=== PATIENT | female | born 1995 | race Hispanic/Latino ===

== ENCOUNTER 2018-05-15 00:56 | Outpatient (CLI) | payer MEDICAID ==
[2018-05-15 01:20] VITALS: BP 136/68
[2018-05-15] MEDS ORDERED: LACTATED RINGERS 1,000 ML IV ONE (01:49)
[2018-05-15 02:29] LABS: Bilirubin,Urine NEG (Negative); Blood,Urine SM (Negative); Color,Urine Yellow (Yellow); Mucus,Urine FEW /HPF; Protein,Urine <15 mg/dL mg/dL (Negative); Urobilinogen,Urine < 2.0 mg/dL (<2.0)
== END 2018-05-15 03:48 | disposition home or self-care (01) ==
LOC: EDSEX → TRG 00:56
PROVIDERS: ATTEND Obstetrics & Gynecology
DX: O47.03 False labor before 37 completed weeks of gestation, third trimester (principal); Z3A.36 36 weeks gestation of pregnancy; O99.333 Smoking (tobacco) complicating pregnancy, third trimester
CPT/HCPCS: 59025; 81001; 96360; J7120

== ENCOUNTER 2018-05-31 23:40 | Inpatient (IN) | payer MEDICAID ==
[2018-06-01] MEDS ORDERED: MINERAL OIL PO PRN (00:12)
[2018-06-01] MEDS ORDERED: POLYCILLIN/NS 2 GM/100 ML 2 GM/100 ML BAG IV ONE (00:12)
[2018-06-01] MEDS ORDERED: XYLOCAINE 2% INFILTRATI ONE (00:12)
[2018-06-01] MEDS ORDERED: BRETHINE SUB-Q PRN (00:12)
--- NOTE | 2018-06-01 00:27 | History and Physical Report ---
History of Present Illness Date of examination: 06/01/18 Chief complaint: SROM @ 2300 History of present illness: patient is an unassigned patient, arrived to triage with c/o SROM @ approx 2300. Clear fluid noted. She reports care with provider @ [facility] starting @ 6weeks. Pt denies medical or surgical hx. She denies complications with - states GBS neg. 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 denies: abnormal PAP smear, hepatitis B, hepatitis C, HIV, syphilis, trichomonas Social history: lives with family - Obstetrical History Expected Date of Delivery: 06/06/18 Actual Gestation: 39 Week(s) 2 Day(s) : 3 Para: 1 Hx # Term Pregnancies: 1 Number of Pregnancies: 0 Spontaneous Abortions: 1 Induced : 0 Number of Living Children: 1 Medications and Allergies Allergies Allergy/AdvReac Type Severity Reaction Status Date / Time No Known Allergies Allergy Verified 05/15/18 02:00 Home Medications Medication Instructions Recorded Confirmed Last Taken Type Ranitidine HCl [Zantac] 300 mg PO QHS 05/15/18 06/01/18 05/31/18 History Review of Systems All systems: negative - Vital Signs Vital signs: Vital Signs Temp Resp 97.0 F L 20 05/31/18 23:54 05/31/18 23:54 Temp Pulse Resp BP Pulse Ox 97.0 F L 91 H 20 129/71 05/31/18 23:54 06/01/18 00:14 05/31/18 23:54 06/01/18 00:14 - Physical Exam Breasts: Positive: normal Cardiovascular: Regular rate Lungs: Positive: Clear to auscultation, Normal air movement Abdomen: Positive: normal appearance, soft Genitourinary (Female): Positive: normal external genitalia, normal perenium Vagina: Positive: normal moisture (srom clear) Uterus: Positive: normal size, normal contour Anus/Rectum: Positive: normal perianal skin Extremities: Positive: normal - Obstetrical FHR: category 1 Uterine Contraction Monitor Mode: External Cervical Dilatation: 3 Cervical Effacement Percentage: 50 Uterine Contraction Pattern: Regular Uterine Tone Measurement Phase: Contraction Uterine Contraction Intensity: Mild Results All other labs normal. Assessment and Plan 23y/o @ 39+ weeks admitted to labor and delivery; SROM @ approx 2300 with clear fluid. vertex. per patient GBS negative. 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 - Patient Problems (1) 39 weeks gestation of Current Visit: Yes Status: Acute (2) SROM (spontaneous rupture of membranes) Current Visit: Yes Status: Acute
[2018-06-01] MEDS ORDERED: PITOCin/NS 20 UNIT/1000ML DRIP 20 UNITS/1,000 ML BAG IV SCH (01:00)
[2018-06-01 01:02] LABS: Hematocrit 32.8 % (30.3-42.9); Hemoglobin 11.1 gm/dl (10.1-14.3); Mean Corpuscular HGB Conc 34 % (30-34); Mean Corpuscular Hemoglobin 29 pg (28-32); Mean Corpuscular Volume 85 fl (79-97); Platelet Count 240 K/mm3 (140-440); Red Blood Count 3.85 M/mm3 (3.65-5.03); Red Cell Distribution Width 14.9 % (13.2-15.2)
[2018-06-01 01:06] LABS: Amphetamine Screen,Urine PRESUMPTIVE NEGATIVE; Benzodiazepines Screen,Urine PRESUMPTIVE NEGATIVE; Cannabinoid Screen,Urine PRESUMPTIVE NEGATIVE; Cocaine Screen,Urine PRESUMPTIVE NEGATIVE; Methadone Screen,Urine PRESUMPTIVE NEGATIVE; Opiate Screen,Urine PRESUMPTIVE NEGATIVE
[2018-06-01] MEDS ORDERED: ZOFRAN ONE (01:42)
[2018-06-01] MEDS: LACTATED RINGERS 1,000 ML IV SCH ×2 (01:59→02:57)
[2018-06-01] MEDS ORDERED: NARCAN 2 MG/2 ML IV PRN (02:42)
--- NOTE | 2018-06-01 02:51 | Anesthesia Consultation ---
Anesthesia Consult and Med Hx - Airway Anesthetic Teeth Evaluation: Good ROM Head & Neck: Adequate Mental/Hyoid Distance: Adequate Mallampati Class: Class II Intubation Access Assessment: Probably Good - Pre-Operative Health Status ASA Pre-Surgery Classification: ASA3 Proposed Anesthetic Plan: Epidural - Pulmonary Hx Asthma: No COPD: No Hx Pneumonia: No - Cardiovascular System Hx Hypertension: No - Central Nervous System Hx Seizures: No Hx Psychiatric Problems: Yes (anxiety) - Endocrine Hx Renal Disease: No Hx End Stage Renal Disease: No Hx Hypothyroidism: No Hx Hyperthyroidism: No - Hematic Hx Anemia: No Hx Sickle Cell Disease: No - Other Systems Hx Alcohol Use: No Hx Obesity: Yes - Additional Comments Anesthesia Medical History Comments: term IUP
[2018-06-01] MEDS: fentaNYL-BUPIV 2 MCG/ML-0.125% 200 MCG/100 ML BAG EPIDURAL SCH ×2 (03:28→09:26)
[2018-06-01] MEDS ORDERED: AMPICILLIN/NS 1 GM/50 ML 1 GM/50 ML BAG IV SCH (04:13)
[2018-06-01] MEDS ORDERED: PITOCin/NS 30 UNIT/500ML 30 UNITS/500 ML BAG IV SCH (06:00)
[2018-06-01] MEDS ORDERED: PEPCID IV ONE (06:30)
--- NOTE | 2018-06-01 07:48 | Progress Note ---
Assessment and Plan pt resting C/o slight DUCKWORTH @ a 2. VSS FHR Cat 1 Ctx Q 2-4 Pit @ 16 mu SVE 6,80,-1 ISE/IUPC placed. Re-eval as needed Subjective - Subjective Date of service: 06/01/18 (pt comfortable with epidural) Principal diagnosis: IUP @ 39 weeks SROM; Patient reports: movement normal Objective - Vital Signs Vital Signs: Vital Signs - 12hr 05/31/18 06/01/18 06/01/18 23:54 00:05 00:14 Temperature 97.0 F L Pulse Rate 93 H 91 H Respiratory 20 Rate Blood Pressure 144/71 129/71 Blood Pressure [Right] O2 Sat by Pulse Oximetry 06/01/18 06/01/18 06/01/18 01:00 01:19 01:21 Temperature Pulse Rate 89 88 98 H Respiratory 17 Rate Blood Pressure Blood Pressure 119/59 [Right] O2 Sat by Pulse 96 97 92 Oximetry 06/01/18 06/01/18 06/01/18 01:24 01:27 01:29 Temperature Pulse Rate 92 H 90 105 H Respiratory Rate Blood Pressure Blood Pressure [Right] O2 Sat by Pulse 96 94 95 Oximetry 06/01/18 06/01/18 06/01/18 01:37 01:42 01:43 Temperature Pulse Rate 88 97 H 69 Respiratory Rate Blood Pressure Blood Pressure [Right] O2 Sat by Pulse 99 96 94 Oximetry 06/01/18 06/01/18 06/01/18 01:47 01:52 01:56 Temperature Pulse Rate 90 99 H 104 H Respiratory Rate Blood Pressure 116/63 Blood Pressure [Right] O2 Sat by Pulse 97 97 94 Oximetry 06/01/18 06/01/18 06/01/18 01:57 02:02 02:08 Temperature Pulse Rate 100 H 93 H 97 H Respiratory Rate Blood Pressure Blood Pressure [Right] O2 Sat by Pulse 95 95 97 Oximetry 06/01/18 06/01/18 06/01/18 02:13 02:15 02:18 Temperature Pulse Rate 88 87 83 Respiratory Rate Blood Pressure Blood Pressure [Right] O2 Sat by Pulse 98 94 97 Oximetry 06/01/18 06/01/18 06/01/18 02:21 02:23 02:28 Temperature Pulse Rate 86 83 107 H Respiratory Rate Blood Pressure 116/59 Blood Pressure [Right] O2 Sat by Pulse 99 98 Oximetry 06/01/18 06/01/18 06/01/18 02:31 02:33 02:35 Temperature Pulse Rate 103 H 98 H 96 H Respiratory Rate Blood Pressure 105/52 122/71 134/92 Blood Pressure [Right] O2 Sat by Pulse 94 Oximetry 06/01/18 06/01/18 06/01/18 02:37 02:38 02:39 Temperature Pulse Rate 97 H 96 H 100 H Respiratory Rate Blood Pressure 147/83 162/72 Blood Pressure [Right] O2 Sat by Pulse 97 90 Oximetry 06/01/18 06/01/18 06/01/18 02:41 02:43 02:45 Temperature Pulse Rate 95 H 83 76 Respiratory Rate Blood Pressure 142/67 123/55 116/58 Blood Pressure [Right] O2 Sat by Pulse 95 94 Oximetry 06/01/18 06/01/18 06/01/18 02:47 02:49 02:51 Temperature Pulse Rate 90 87 82 Respiratory Rate Blood Pressure 111/55 109/55 104/55 Blood Pressure [Right] O2 Sat by Pulse Oximetry 06/01/18 06/01/18 06/01/18 02:53 02:56 03:01 Temperature Pulse Rate 77 83 84 Respiratory Rate Blood Pressure 103/52 Blood Pressure [Right] O2 Sat by Pulse 97 97 Oximetry 06/01/18 06/01/18 06/01/18 03:06 03:11 03:12 Temperature Pulse Rate 84 78 75 Respiratory Rate Blood Pressure 109/67 Blood Pressure [Right] O2 Sat by Pulse 95 97 Oximetry 06/01/18 06/01/18 06/01/18 03:16 03:21 03:26 Temperature Pulse Rate 71 78 73 Respiratory Rate Blood Pressure 100/52 Blood Pressure [Right] O2 Sat by Pulse 94 98 94 Oximetry 06/01/18 06/01/18 06/01/18 03:31 03:34 03:36 Temperature Pulse Rate 84 74 73 Respiratory Rate Blood Pressure Blood Pressure [Right] O2 Sat by Pulse 99 94 97 Oximetry 06/01/18 06/01/18 06/01/18 03:41 03:44 03:46 Temperature Pulse Rate 77 74 69 Respiratory Rate Blood Pressure 120/54 Blood Pressure [Right] O2 Sat by Pulse 97 93 94 Oximetry 06/01/18 06/01/18 06/01/18 03:51 03:56 04:01 Temperature Pulse Rate 84 85 97 H Respiratory Rate Blood Pressure Blood Pressure [Right] O2 Sat by Pulse 97 98 96 Oximetry 06/01/18 06/01/18 06/01/18 04:03 04:06 04:17 Temperature Pulse Rate 86 86 77 Respiratory Rate Blood Pressure Blood Pressure [Right] O2 Sat by Pulse 93 93 97 Oximetry 06/01/18 06/01/18 06/01/18 04:22 04:26 04:27 Temperature Pulse Rate 97 H 74 74 Respiratory Rate Blood Pressure 108/56 Blood Pressure [Right] O2 Sat by Pulse 96 96 Oximetry 06/01/18 06/01/18 06/01/18 04:32 04:37 04:40 Temperature Pulse Rate 71 101 H 75 Respiratory Rate Blood Pressure 110/56 Blood Pressure [Right] O2 Sat by Pulse 96 94 Oximetry 06/01/18 06/01/18 06/01/18 04:42 04:47 04:52 Temperature Pulse Rate 73 82 77 Respiratory Rate Blood Pressure Blood Pressure [Right] O2 Sat by Pulse 96 96 96 Oximetry 06/01/18 06/01/18 06/01/18 04:55 04:57 05:37 Temperature Pulse Rate 68 72 78 Respiratory Rate Blood Pressure 99/58 Blood Pressure [Right] O2 Sat by Pulse 96 96 Oximetry 06/01/18 06/01/18 06/01/18 05:40 05:42 05:43 Temperature Pulse Rate 83 87 85 Respiratory Rate Blood Pressure 102/58 100/55 Blood Pressure [Right] O2 Sat by Pulse 97 Oximetry 06/01/18 06/01/18 06/01/18 05:47 05:52 05:57 Temperature Pulse Rate 81 77 90 Respiratory Rate Blood Pressure 110/50 Blood Pressure [Right] O2 Sat by Pulse 98 96 97 Oximetry 06/01/18 06/01/18 06/01/18 06:02 06:07 06:11 Temperature Pulse Rate 91 H 76 82 Respiratory Rate Blood Pressure 100/46 Blood Pressure [Right] O2 Sat by Pulse 96 96 Oximetry 06/01/18 06/01/18 06/01/18 06:12 06:17 06:22 Temperature Pulse Rate 89 84 80 Respiratory Rate Blood Pressure Blood Pressure [Right] O2 Sat by Pulse 97 95 96 Oximetry 06/01/18 06/01/18 06/01/18 06:27 06:28 06:32 Temperature Pulse Rate 85 82 87 Respiratory Rate Blood Pressure 93/48 Blood Pressure [Right] O2 Sat by Pulse 96 97 Oximetry 06/01/18 06/01/18 06/01/18 06:33 06:37 06:40 Temperature Pulse Rate 75 87 84 Respiratory Rate Blood Pressure 110/55 111/53 Blood Pressure [Right] O2 Sat by Pulse 96 Oximetry 06/01/18 06/01/18 06/01/18 06:42 06:47 06:52 Temperature Pulse Rate 96 H 84 86 Respiratory Rate Blood Pressure Blood Pressure [Right] O2 Sat by Pulse 97 96 96 Oximetry 06/01/18 06/01/18 06/01/18 06:56 06:57 07:02 Temperature Pulse Rate 85 74 90 Respiratory Rate Blood Pressure 90/54 Blood Pressure [Right] O2 Sat by Pulse 95 95 Oximetry 06/01/18 06/01/18 06/01/18 07:07 07:10 07:12 Temperature 98.9 F Pulse Rate 77 87 83 Respiratory Rate Blood Pressure 94/51 Blood Pressure [Right] O2 Sat by Pulse 95 95 Oximetry 06/01/18 06/01/18 06/01/18 07:17 07:22 07:26 Temperature Pulse Rate 84 92 H 83 Respiratory Rate Blood Pressure 98/48 Blood Pressure [Right] O2 Sat by Pulse 95 97 Oximetry 06/01/18 06/01/18 06/01/18 07:27 07:31 07:32 Temperature Pulse Rate 85 82 91 H Respiratory Rate Blood Pressure Blood Pressure [Right] O2 Sat by Pulse 95 94 95 Oximetry 06/01/18 06/01/18 06/01/18 07:37 07:42 07:47 Temperature Pulse Rate 82 82 94 H Respiratory Rate Blood Pressure 102/55 Blood Pressure [Right] O2 Sat by Pulse 95 96 97 Oximetry 06/01/18 06/01/18 06/01/18 07:50 07:52 07:55 Temperature Pulse Rate 112 H 99 H 98 H Respiratory Rate Blood Pressure Blood Pressure [Right] O2 Sat by Pulse 93 96 93 Oximetry 06/01/18 06/01/18 07:56 07:57 Temperature Pulse Rate 99 H 104 H Respiratory Rate Blood Pressure 103/58 Blood Pressure [Right] O2 Sat by Pulse 95 Oximetry - Exam Breasts: deferred Cardiovascular: Regular rate Lungs: Normal air movement Abdomen: Present: normal appearance, soft. Absent: distention, tenderness Uterus: Present: normal FHR: auscultation normal, category 1 Uterine Contraction Monitor Mode: Internal Cervical Dilatation: 6 (ISE/IUPC placed) Cervical Effacement Percentage: 80 station: -1 Uterine Contraction Pattern: Regular Uterine Tone Measurement Phase: Resting Uterine Contraction Intensity: Moderate Extremities: edema Deep Tendon Reflex Grade: Normal +2 - Labs Labs: Abnormal Labs 06/01/18 00:15 WBC 13.3 H Laboratory Results - last 24 hr 06/01/18 06/01/18 06/01/18 00:15 00:15 00:24 WBC 13.3 H RBC 3.85 Hgb 11.1 Hct 32.8 MCV 85 MCH 29 MCHC 34 RDW 14.9 Plt Count 240 Urine Opiates Screen Presumptive negative Urine Methadone Screen Presumptive negative Ur Barbiturates Screen Presumptive negative Ur Phencyclidine Scrn Presumptive negative Ur Amphetamines Screen Presumptive negative U Benzodiazepines Scrn Presumptive negative Urine Cocaine Screen Presumptive negative U Marijuana (THC) Screen Presumptive negative Drugs of Abuse Note Disclamer Blood Type O POSITIVE Antibody Screen Negative
[2018-06-01] MEDS ORDERED: MILK OF MAGNESIA PO PRN (10:00)
[2018-06-01] MEDS ORDERED: BENADRYL PO PRN (10:00)
[2018-06-01] MEDS ORDERED: SODIUM CHLORIDE FLUSH SYRINGE 10 ML IV PRN (10:00)
[2018-06-01] MEDS ORDERED: TUCKS PAD TP PRN (10:00)
[2018-06-01] MEDS ORDERED: PHENERGAN PO PRN (10:00)
[2018-06-01] MEDS ORDERED: PRENATAL VITAMIN PO SCH (10:00)
[2018-06-01] MEDS ORDERED: DULCOLAX PR PRN (10:00)
[2018-06-01] MEDS ORDERED: TYLENOL PO PRN (10:00)
[2018-06-01] MEDS ORDERED: LANSINOH TP PRN (10:00)
[2018-06-01] MEDS ORDERED: ZOFRAN IV PRN (10:00)
--- NOTE | 2018-06-01 10:32 | Procedure Note ---
OB Delivery Note - Delivery Date of Delivery: 06/01/18 Coil Former: LETY SANTANA Estimated blood loss: 500cc - Vaginal Delivery presentation: vertex Delivery position: OA Intrapartum events: other(please specify) (BMI >40) Delivery induction: none Delivery augmentation: pitocin Delivery monitor: internal FHT, internal uterine Route of delivery: Delivery placenta: expressed Delivery cord: 3 umbilical vessels Episiotomy: none Delivery laceration: none Anesthesia: epidural Delivery comments: live born male over intact perineum Skin to skin with mom. Cord blood obtained Placenta and membrane del complete and intact, 3 vessel cord. Pit IVFs 8/9, EBL 500, Wgt 7-13 Mom and baby remain LDR stable. - A at 1 minute: 8 at 5 minutes: 9 Infant Gender: Male (wgt 7-13)
[2018-06-01] MEDS: MOTRIN PO SCH ×2 (13:40→21:53)
[2018-06-01] MEDS ORDERED: MOTRIN PO SCH (14:00)
[2018-06-01] MEDS: NORCO 5/325 PO PRN (18:00)
--- NOTE | 2018-06-01 21:02 | Cat Scan Report ---
FINAL REPORT EXAM: CT LUMBAR SPINE W CON HISTORY: RO epidural hematoma left leg weakness and some bladder issues following epidural anesthesia. Patient is 8 hours out of procedure. . TECHNIQUE: Following IV administration of 100 cc of Omnipaque 350 axial helical imaging through the lumbar spine with sagittal and coronal reformatted images obtained. Comparison: None FINDINGS: Bony alignment is normal. The vertebral height are maintained. There appears to be loss of height of the L1-L2 disc. There is no evidence of bony canal or foraminal stenosis. Visualization detail the contents of the lumbar canal is somewhat limited by artifact. However, there appears to be a possible small central disc protrusion/herniation at L5-S1. There are small collections of epidural air extending from L2 inferiorly through L4. There are small collections of air in the right posterior paraspinous soft tissues at the L1-L4 levels. There is no definite evidence of an abnormal collection within the lumbar canal to suggest the presence of hematoma. However, a small epidural hematoma could be missed due to artifact. There is no evidence of compromise of the thecal sac. There are foci of increased density in the renal pelvis bilaterally most consistent with nonobstructing renal stones. There is no evidence of hydronephrosis. The uterus is incompletely imaged but appears to be enlarged with collections of intra uterine air most suggestive of an acute state. IMPRESSION: 1. Small collections of epidural air and small collections of air in the right posterior paraspinous soft tissues consistent with recent epidural access. This is not unexpected. 2. There is no definite evidence of epidural hematoma and no definite evidence of compromise of the thecal sac. If the patient remains symptomatic MRI lumbar spine without gadolinium may be helpful for further evaluation. 2. Appearance of nonobstructing stones in the renal pelvis bilaterally. 3. Appearance of state of the uterus which is incompletely imaged. This study was discussed with Dr. Rowe at 8:55 p.m. June 01, 2018.
[2018-06-01 21:21] LABS: Hematocrit 32.2 % (30.3-42.9); Hemoglobin 10.7 gm/dl (10.1-14.3)
--- NOTE | 2018-06-01 21:45 | Progress Note ---
Subjective Date of service: 06/01/18 Principal diagnosis: IUP @ 39 weeks SROM; Interval history: 23 yo female s/p epidural for IUP at term. Lumbar epidural placed approx 18hrs prior to evaluation by anesthesiologist. 18:30 Called to kylah pt for right sided motor weakness and inability to urinate. No signs of lumbar trauma per physical evaluation. All vitals stable. Pt stated that she has been unable to walk or urinate all day, and was unable to get out of bed. Stat CT with contrast was ordered for lumbar spine. No evidence of epidural hematoma per radiologist. 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 It has been advised by radiology to follow up with an MRI if physical signs worsen in am, but at the time no signifgant evidence of trauma or hematoma by CT Objective - Constitutional Vitals: Vital Signs - 12hr 06/01/18 06/01/18 06/01/18 09:40 09:55 10:10 Temperature Pulse Rate 78 90 97 H Respiratory Rate Blood Pressure 127/67 123/62 124/61 Blood Pressure [Right] O2 Sat by Pulse Oximetry 06/01/18 06/01/18 06/01/18 10:26 10:31 10:32 Temperature Pulse Rate 85 86 94 H Respiratory Rate Blood Pressure 119/58 108/55 Blood Pressure [Right] O2 Sat by Pulse 98 Oximetry 06/01/18 06/01/18 06/01/18 11:50 11:55 16:40 Temperature 98.2 F 98.5 F 98.5 F Pulse Rate 86 80 Respiratory 18 16 18 Rate Blood Pressure Blood Pressure 104/48 106/58 [Right] O2 Sat by Pulse 97 96 Oximetry - Labs CBC & Chem 7: 06/01/18 21:08 Labs: Abnormal lab results 06/01/18 Range/Units 00:15 WBC 13.3 H (4.5-11.0) K/mm3
[2018-06-01] MEDS: COLACE PO SCH (21:52)
[2018-06-02] MEDS: NORCO 5/325 PO PRN ×2 (05:35→11:17)
[2018-06-02] MEDS ORDERED: BOOSTRIX IM ONE (06:00)
--- NOTE | 2018-06-02 07:12 | Discharge Summary ---
Providers - Providers Date of Admission: 06/01/18 00:30 Date of discharge: 06/02/18 (spoke with Pt is cleared for d/c ) Attending physician: TERRANCE ALVARENGA Primary care physician: TERRANCE ALVARENGA Hospitalization Reason for admission: active labor, rupture of membranes Delivery: Episiotomy: none Laceration: none Incision: normal Other procedures: none complications: none Discharge diagnosis: IUP at term delivered [place] baby: male Hospital course: uncomplicated vaginal delivery Pt w/o complaint VSS FF below umb Lochia scant Perineum intact. H&H10/32 stable. Pt had c/o leg pain and anesthesia was consulted. CT scan was negative. Poss kidney stone noted. Pt will f/u out patient. Cleared by anesthesia for d/ c. Doing well s/p vag delivery. P: d/c today with instructions RTO 4 weeks PP care Circ one week. Condition at discharge: Good Disposition: DC-01 TO HOME OR SELFCARE - Discharge Diagnoses (1) Spontaneous vaginal delivery Status: Acute Comment: RTO PP care 4 weeks Plan - Provider Discharge Summary Activity: routine, no sex for 6 weeks, no heavy lifting 4 weeks, no strenuous exercise Diet: routine Instructions: routine Additional instructions: [] Smoking cessation referral if applicable(refer to patient education folder for contact #) [] Refer to [facility] Booklet Call your doctor immediately for: * Fever > 100.5 * Heavy vaginal bleeding ( >1 pad per hour) * Severe persistent headache * Shortness of breath * Reddened, hot, painful area to leg or breast * Drainage or odor from incision. * Keep incision clean and dry at all times and follow doctor's instructions regarding bathing/showering - Follow up plan Follow up: TERRANCE ALVARENGA MD [Primary Care Provider] - 7 Days (Congratulations! Please call [phone] to schedule your visit in 4 weeks and your son's circumcison in 1 week. Bring the EMLA cream with you to his visit. Do NOT use at home. Take medications as prescribed. Call with concerns. )
[2018-06-02] MEDS ORDERED: M-M-R II VACCINE SUB-Q ONE (11:00)
[2018-06-02] MEDS: COLACE PO SCH (11:02)
[2018-06-02 15:25] VITALS: BP 96/46
== END 2018-06-02 15:00 | disposition home or self-care (01) | DRG 775 ==
LOC: TRG 23:40 → LD 06-01 00:30 → TRG 06-01 00:30 → OB 06-01 12:22
PROVIDERS: ADMIT Obstetrics & Gynecology; ATTEND Obstetrics & Gynecology
PROC: 10E0XZZ Delivery of Products of Conception, External Approach (ICD-10-PCS; principal; 2018-06-01)
PROC: 10H07YZ Insertion of Other Device into Products of Conception, Via Natural or Artificial Opening (ICD-10-PCS; 2018-06-01)
PROC: 3E0R3BZ Introduction of Anesthetic Agent into Spinal Canal, Percutaneous Approach (ICD-10-PCS; 2018-06-01)
PROC: 00HU33Z Insertion of Infusion Device into Spinal Canal, Percutaneous Approach (ICD-10-PCS; 2018-06-01)
PROC: 3E0234Z Introduction of Serum, Toxoid and Vaccine into Muscle, Percutaneous Approach (ICD-10-PCS; 2018-06-02)
DX: O42.02 Full-term premature rupture of membranes, onset of labor within 24 hours of rupture (principal); O99.214 Obesity complicating childbirth; Z3A.39 39 weeks gestation of pregnancy; Z37.0 Single live birth; Z23 Encounter for immunization; Z68.42 Body mass index [BMI] 45.0-49.9, adult; O99.344 Other mental disorders complicating childbirth; E66.9 Obesity, unspecified; F41.9 Anxiety disorder, unspecified
CPT/HCPCS: 36415; 72132; 80307; 85014; 85018; 85027; 86592; 86850; 86900; 86901; 99211; G0463; J0290; J2405; J2590; J7120; Q9967

== ENCOUNTER 2018-12-20 20:53 | Emergency (ER) | payer SELFPAY ==
[2018-12-20 22:29] VITALS: BP 136/63
[2018-12-20 22:59] LABS: Basophils # (Auto) 0.1 K/mm3 (0.0-0.1); Basophils % (Auto) 0.6 % (0.0-1.8); Eosinophils # (Auto) 0.2 K/mm3 (0.0-0.4); Eosinophils % (Auto) 1.6 % (0.0-4.3); Hematocrit 37.8 % (30.3-42.9); Lymphocytes # (Auto) 2.2 K/mm3 (1.2-5.4); Lymphocytes % (Auto) 20.2 % (13.4-35.0); Mean Corpuscular HGB Conc 34 % (30-34); Mean Corpuscular Volume 88 fl (79-97); Monocytes # (Auto) 0.6 K/mm3 (0.0-0.8); Monocytes % (Auto) 5.2 % (0.0-7.3); Platelet Count 293 K/mm3 (140-440); Red Blood Count 4.32 M/mm3 (3.65-5.03); Red Cell Distribution Width 14.7 % (13.2-15.2)
--- NOTE | 2018-12-21 00:49 | Ultrasound Report ---
PROCEDURE: US OB <= 14 WEEKS FETUS TECHNIQUE: Real-time transvaginal sonography of the uterus, placenta, amniotic fluid, adnexa, and fe tus was performed with image documentation. Measurements were obtained to determine age/size. M -mode Doppler was used to document heartbeat. ADDITIONAL GESTATION: None. HISTORY: Vaginal bleeding COMPARISONS: None . FINDINGS: Yolk Sac: Appropriate for gestational age. . Gestational Sac: There is a gestational sac within the uterus. The gestational sac size 24 mm corres ponds to gestational age of approximately 6 weeks. A yolk sac is identified. A pole is not seen at this time. Cervix: Normal. Right Ovary: There is a 29 mm dominant cyst on the right ovary . Left Ovary: Not visualized . IMPRESSION: There is a gestational sac within the uterus. A yolk sac is identified. The corresponding gestational age is approximately 6 weeks. Recheck ultrasound study in approximately 14 days would be of benefit. There is a dominant 29 mm cyst on the right ovary. This document is electronically signed by Catherine Mosqueda DO., December 21 2018 12:47:10 AM ET
[2018-12-21 01:25] LABS: Bilirubin,Urine NEG (Negative); Blood,Urine NEG (Negative); Color,Urine Yellow (Yellow); Mucus,Urine 2+ /HPF; Urobilinogen,Urine < 2.0 mg/dL (<2.0)
--- NOTE | 2018-12-21 02:25 | Emergency Department Report ---
ED Female HPI - General Chief complaint: Vaginal Bleeding Stated complaint: VAGINAL BLEEDING/BACK PAIN Time Seen by Provider: 12/20/18 22:25 Source: patient Mode of arrival: Ambulatory Limitations: No Limitations - History of Present Illness Initial comments: 23-year-old female presents to the emergency room for vaginal bleeding with lower back pain. She reports that she is 4 para 2. Patient last delivered 06/01/2018. Patient with is currently on no control. Patient reports that she had a history of a miscarriage. Patient reports she just sees blood when she wiped filling of pads. Patient reports that she has a history of kidney stones but this feels like pain that she had when she had a miscarriage. Patient is taking for pain. 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 Patient reports her last He should denies any known drug allergies currently takes no medications on a daily basis. Patient does report she has Zofran and vitamins at home. MD Complaint: vaginal bleeding -: days(s) (1) Severity: mild Quality: cramping Consistency: intermittent Are you Now?: Yes Last Menstrual Period: 11/06/18 EDC: 08/13/19 Associated Symptoms: vaginal bleeding, nausea/vomiting (nausea) - Related Data Sexually active: Yes : 4 Para: 1 Home Medications Medication Instructions Recorded Confirmed Last Taken Ranitidine HCl [Zantac] 300 mg PO QHS 05/15/18 06/01/18 05/31/18 Previous Rx's Medication Instructions Recorded Last Taken Type Ibuprofen [Motrin 800 MG tab] 800 mg PO TID PRN #30 tablet 06/02/18 Unknown Rx Lidocain2.5%/Prilocai2.5% [Emla] 5 gm TP PRN #1 tube 06/02/18 Unknown Rx Allergies Allergy/AdvReac Type Severity Reaction Status Date / Time No Known Allergies Allergy Verified 05/15/18 02:00 ED Review of Systems ROS: Stated complaint: VAGINAL BLEEDING/BACK PAIN Other details as noted in HPI Comment: All other systems reviewed and negative Gastrointestinal: nausea Genitourinary: other (vaginal spotting) Musculoskeletal: back pain ED Past Medical Hx - Past Medical History Previous Medical History?: Yes Hx Hypertension: No Hx Congestive Heart Failure: No Hx Diabetes: No Hx Deep Vein Thrombosis: No Hx Renal Disease: No Hx Sickle Cell Disease: No Hx Seizures: No Hx Asthma: No Hx COPD: No Hx HIV: No Additional medical history: kidney stone - Surgical History Past Surgical History?: No - Social History Smoking Status: Current Every Day Smoker Substance Use Type: None - Medications Home Medications: Home Medications Medication Instructions Recorded Confirmed Last Taken Type Ranitidine HCl [Zantac] 300 mg PO QHS 05/15/18 06/01/18 05/31/18 History Ibuprofen [Motrin 800 MG tab] 800 mg PO TID PRN #30 tablet 06/02/18 Unknown Rx Lidocain2.5%/Prilocai2.5% [Emla] 5 gm TP PRN #1 tube 06/02/18 Unknown Rx ED Physical Exam - General Limitations: No Limitations General appearance: alert, in no apparent distress - Head Head exam: Present: atraumatic, normocephalic - Eye Eye exam: Present: normal appearance - ENT ENT exam: Present: mucous membranes moist - Neck Neck exam: Present: normal inspection - Respiratory Respiratory exam: Present: normal lung sounds bilaterally. Absent: respiratory distress - Cardiovascular Cardiovascular Exam: Present: regular rate, normal rhythm. Absent: systolic murmur, diastolic murmur, rubs, gallop ED Course Vital Signs 12/20/18 12/20/18 22:24 22:28 Temperature 99 F Pulse Rate 94 H 108 H Respiratory 18 16 Rate Blood Pressure 126/69 Blood Pressure 136/63 [Right] O2 Sat by Pulse 99 97 Oximetry ED Medical Decision Making - Lab Data Result diagrams: 12/20/18 22:42 - Radiology Data Radiology results: report reviewed Ultrasound OB less than 14 week fetus. Impression there is a gestational sac within the uterus. A yolk sac is identified. The corresponding gestational age is approximately 6 weeks. Recheck ultrasound study in approximately 14 days would be of benefit. There is a dominant 29 mm cyst on the right ovary. - Medical Decision Making Since been evaluated by this provider in fast track. CBC CMP, urinalysis, RhoGAM screening, ultrasound less than 14 weeks with transvaginal been ordered. 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 Also discussed the patient that she'll need to have an ultrasound done in 2 weeks for reassessment growth. Patient verbalizes understanding. Critical care attestation.: If time is entered above; I have spent that time in minutes in the direct care of this critically ill patient, excluding procedure time. ED Disposition Clinical Impression: Qualifiers: Weeks of gestation: less than 8 weeks Qualified Code(s): Z3A.01 - Less than 8 weeks gestation of Disposition: DC-01 TO HOME OR SELFCARE Is pt being admited?: No Does the pt Need Aspirin: No Condition: Stable Instructions: (ED) Additional Instructions: Please follow up with her university relations vice president or emergency room in 48-72 hours to have her repeat hCG. As I discussed with 2 units and need to have her repeat ultrasound in 14 days. Please follow-up with [facility] relations vice president at [facility]. Referrals: [facility] [Provider Group] - 3-5 Days Forms: Accompanied Note, Work/School Release Form(ED)
== END 2018-12-21 03:05 | disposition home or self-care (01) ==
LOC: ED 20:53
DX: O46.8X1 Other antepartum hemorrhage, first trimester (principal); O21.9 Vomiting of pregnancy, unspecified; F17.200 Nicotine dependence, unspecified, uncomplicated; Z87.442 Personal history of urinary calculi; Z3A.01 Less than 8 weeks gestation of pregnancy
CPT/HCPCS: 36415; 76801; 76817; 81001; 84702; 85025; 86900; 86901

== ENCOUNTER 2019-11-27 12:02 | Outpatient (CLI) | payer MEDICAID ==
[2019-11-27 12:40] VITALS: BP 115/56
--- NOTE | 2019-11-27 16:34 | Ultrasound Report ---
US OB limited INDICATION: JULIO C. COMPARISON: None available. FINDINGS: There is a single living intrauterine with heart rate of 1 50 bpm. Amniotic fluid index is normal, measuring 11 cm. presentation is cephalic. IMPRESSION: 1. Normal amniotic fluid index of 11 cm. Signer Name: Ady Arndt MD Signed: 11/27/2019 4:30 PM Workstation Name: [id number]
== END 2019-11-27 15:30 | disposition home or self-care (01) ==
LOC: TRG 12:02
PROVIDERS: ATTEND Obstetrics & Gynecology
DX: O42.913 Preterm premature rupture of membranes, unspecified as to length of time between rupture and onset of labor, third trimester (principal); Z3A.31 31 weeks gestation of pregnancy
CPT/HCPCS: 76815

== ENCOUNTER 2019-12-19 12:13 | Outpatient (CLI) | payer MEDICAID ==
[2019-12-19] MEDS ORDERED: LACTATED RINGERS 500 ML IV ONE (12:55)
[2019-12-19 13:36] LABS: Hematocrit 34.1 % (30.3-42.9); Hemoglobin 11.4 gm/dl (10.1-14.3); Mean Corpuscular HGB Conc 34 % (30-34); Mean Corpuscular Volume 88 fl (79-97); Platelet Count 246 K/mm3 (140-440); Red Cell Distribution Width 14.1 % (13.2-15.2)
[2019-12-19 13:42] LABS: Bacteria,Urine 1+ /HPF (Negative); Bilirubin,Urine NEG (Negative); Blood,Urine MOD (Negative); Color,Urine Yellow (Yellow); Mucus,Urine FEW /HPF; Protein,Urine <15 mg/dL mg/dL (Negative); Urobilinogen,Urine < 2.0 mg/dL (<2.0)
[2019-12-19 13:43] LABS: RBC,Urine > 182.0 /HPF (0.0-6.0)
[2019-12-19] MEDS ORDERED: TERBUTALINE 1 MG/1 ML INJ SUB-Q ONE (13:50)
[2019-12-19 13:53] LABS: Creatinine,Urine 78.3 mg/dL (0.1-20.0); Protein/Creatinine Ratio,Urine 0.2
[2019-12-19 14:00] LABS: Alanine Aminotransferase 7 units/L (7-56); Uric Acid 4.5 mg/dL (3.5-7.6)
[2019-12-19 14:59] VITALS: BP 127/72
[2019-12-19] MEDS ORDERED: LACTATED RINGERS 1,000 ML IV SCH (15:00)
[2019-12-19] MEDS ORDERED: TERBUTALINE 1 MG/1 ML INJ SUB-Q SCH (15:15)
--- NOTE | 2019-12-19 15:36 | Event Note ---
Date: 12/19/19 patient reports ctx have resolved, t cat 1. SVE 0.5/thick/firm/oop. pre-e labs and b/p normal. discussed d/c home, keep next appointment in office. all questions addressed.
== END 2019-12-19 15:41 | disposition home or self-care (01) ==
LOC: TRG 12:13
PROVIDERS: ATTEND Obstetrics & Gynecology
DX: O21.2 Late vomiting of pregnancy (principal); O26.893 Other specified pregnancy related conditions, third trimester; R51 Headache; M79.89 Other specified soft tissue disorders; O47.03 False labor before 37 completed weeks of gestation, third trimester; O99.343 Other mental disorders complicating pregnancy, third trimester; F41.9 Anxiety disorder, unspecified; F32.9 Major depressive disorder, single episode, unspecified; Z87.891 Personal history of nicotine dependence; Z3A.34 34 weeks gestation of pregnancy
CPT/HCPCS: 36415; 81001; 82565; 82570; 83615; 84156; 84450; 84460; 84550; 85027; 96372; J3105; J7120

== ENCOUNTER 2020-01-09 23:14 | Outpatient (CLI) | payer MEDICAID ==
[2020-01-09 23:28] VITALS: BP 121/77
== END 2020-01-10 00:21 | disposition home or self-care (01) ==
LOC: TRG 23:14
PROVIDERS: ATTEND Obstetrics & Gynecology
DX: O47.1 False labor at or after 37 completed weeks of gestation (principal); Z3A.37 37 weeks gestation of pregnancy
CPT/HCPCS: 59025

== ENCOUNTER 2020-01-25 04:32 | Outpatient (CLI) | payer MEDICAID ==
[2020-01-25] MEDS ORDERED: LACTATED RINGERS 1,000 ML IV ONE (05:01)
[2020-01-25] MEDS ORDERED: ONDANSETRON 4 MG/2 ML INJ IV ONE (05:22)
[2020-01-25 07:22] LABS: Bacteria,Urine 2+ /HPF (Negative); Bilirubin,Urine NEG (Negative); Blood,Urine MOD (Negative); Calcium Oxalate Crystals,Urine FEW; Color,Urine Yellow (Yellow); Mucus,Urine 3+ /HPF; Urobilinogen,Urine < 2.0 mg/dL (<2.0)
[2020-01-25 07:29] LABS: RBC,Urine > 182.0 /HPF (0.0-6.0)
== END 2020-01-25 05:47 | disposition home or self-care (01) ==
LOC: TRG 04:32
PROVIDERS: ATTEND Obstetrics & Gynecology
DX: O26.833 Pregnancy related renal disease, third trimester (principal); N20.0 Calculus of kidney; Z3A.39 39 weeks gestation of pregnancy
CPT/HCPCS: 59025; 81001; 87086; 96361; 96374; J2405; J7120; 96360

== ENCOUNTER 2020-01-27 23:29 | Outpatient (CLI) | payer MEDICAID ==
[2020-01-27] MEDS ORDERED: LACTATED RINGERS 1,000 ML IV SCH (23:45)
[2020-01-28 01:39] VITALS: BP 144/70
== END 2020-01-28 02:15 | disposition home or self-care (01) ==
LOC: TRG 23:29 → APU 23:30 → TRG 01-28 02:15
PROVIDERS: ATTEND Obstetrics & Gynecology
DX: O47.1 False labor at or after 37 completed weeks of gestation (principal); Z3A.40 40 weeks gestation of pregnancy
CPT/HCPCS: 59025

== ENCOUNTER 2020-01-29 17:57 | Inpatient (IN) | payer MEDICAID | END 2020-01-31 18:44 | disposition home or self-care (01) | DRG 775 | LOC: APU 17:57 → LD 21:19 → OB 01-30 22:53 | PROVIDERS: ADMIT Obstetrics & Gynecology | PROC: 10E0XZZ Delivery of Products of Conception, External Approach (ICD-10-PCS; principal; 2020-01-30) | PROC: 3E0R3BZ Introduction of Anesthetic Agent into Spinal Canal, Percutaneous Approach (ICD-10-PCS; 2020-01-30) | PROC: 00HU33Z Insertion of Infusion Device into Spinal Canal, Percutaneous Approach (ICD-10-PCS; 2020-01-30) | PROC: 10H07YZ Insertion of Other Device into Products of Conception, Via Natural or Artificial Opening (ICD-10-PCS; 2020-01-30) | PROC: 3E0234Z Introduction of Serum, Toxoid and Vaccine into Muscle, Percutaneous Approach (ICD-10-PCS; 2020-01-31) | DX: O77.0 Labor and delivery complicated by meconium in amniotic fluid (principal); E66.9 Obesity, unspecified; O99.214 Obesity complicating childbirth; O90.81 Anemia of the puerperium; D62 Acute posthemorrhagic anemia; O69.81X0 Labor and delivery complicated by cord around neck, without compression, not applicable or unspecified; Z3A.40 40 weeks gestation of pregnancy; Z23 Encounter for immunization; Z85.43 Personal history of malignant neoplasm of ovary; Z87.440 Personal history of urinary (tract) infections; Z37.0 Single live birth ==